=== PATIENT | male | born 1960 | race Caucasian/White ===

== ENCOUNTER 2017-10-18 10:44 | Emergency (ER) | payer OTHER ==
[2017-10-18] MEDS ORDERED: Lidocaine 1% 20 ML MDV ONE (10:52)
[2017-10-18] MEDS ORDERED: Lidocaine 1% w/Epinephrine 1:100K 30 ML VIAL ONE (10:55)
[2017-10-18] MEDS ORDERED: Bacitracin Zinc 1 Packet ONE (11:30)
== END 2017-10-18 11:44 | disposition home or self-care (01) ==
LOC: NAV ERS 10:44
DX: S51.812A Laceration without foreign body of left forearm, initial encounter (principal); K21.9 Gastro-esophageal reflux disease without esophagitis; I10 Essential (primary) hypertension; Z87.891 Personal history of nicotine dependence; W01.0XXA Fall on same level from slipping, tripping and stumbling without subsequent striking against object, initial encounter
CPT/HCPCS: 12002; 99001; J2001

== ENCOUNTER 2017-10-20 08:25 | Emergency (ER) | payer OTHER ==
[2017-10-20] MEDS ORDERED: Bacitracin Zinc 1 Packet ONE ×2 (08:57→10:13)
[2017-10-20 08:59] LABS: #Eosinphils 0.1 thou/uL (0.0-0.7); #Lymphocytes 1.3 thou/uL (1.20-3.40); #Monocytes 0.5 thou/uL (0.11-0.59); #Neutrophils 2.3 thou/uL (1.40-6.50); %Eosinophils 1.7 % (0.0-10.0); %Lymphocytes 31.2 % (21.0-51.0); %Monocytes 11.7 % (0.0-10.0); %Neutrophils 54.4 % (42.0-75.0); Hemoglobin 15.4 g/dL (14.0-18.0); Mean Corpuscular HGB CONC 30.2 g/dL (32.0-36.0); Mean Corpuscular Hemoglobin 24.2 pg (27.0-31.0); Mean Corpuscular Volume 79.9 fL (78.0-98.0); Mean Platelet Volume 13.5 fL (7.4-10.4); Platelet Count 93 thou/uL (130-400); RBC Distribution Width 15.7 % (11.5-14.5); Red Blood Cell (RBC) Count 6.36 mill/uL (4.70-6.10); White Blood Cell (WBC) Count 4.3 thou/uL (4.8-10.8)
--- NOTE | 2017-10-20 10:34 | RAD ---
FOUR VIEWS OF THE LEFT ELBOW: INDICATION: Joint pain and history of laceration. FINDINGS: There is radiopaque prominence seen overlying the lateral aspect of the elbow joint which may reflect debris. There is suggested hematoma within the posterolateral soft tissues of the distal left forea rm measuring approximately 8.1 cm. No acute fracture or subluxation is evident. IMPRESSION: No acute osseous abnormality. Suspected hematoma within the posterior soft tissues distal left arm. There is radiopaque density seen within the soft tissues lateral to the left elbow that may reflect radiopaque debris. POS: [facility]
--- NOTE | 2017-10-20 10:43 | RAD ---
TWO VIEWS OF THE LEFT ELBOW: INDICATION: Joint pain, rule out foreign body. FINDINGS: There are 2 radiopaque densities within the soft tissues lateral to the left elbow joint. One is see n measuring 6 mm and one is measuring 9 mm. This is adjacent to the inferior most surface marker mitchel michael on the lateral aspect of the left elbow. The superiormost surface marker projects over the regio n of suspected hematoma within the posterolateral distal left arm. IMPRESSION: 1. No acute osseous abnormality. 2. Radiopaque foreign body as above. 3. Suspected hematoma within the subcutaneous tissues of the left distal arm. POS: [facility]
== END 2017-10-20 10:22 | disposition home or self-care (01) ==
LOC: NAV ERS 08:25
DX: S40.022A Contusion of left upper arm, initial encounter (principal); K21.9 Gastro-esophageal reflux disease without esophagitis; I10 Essential (primary) hypertension; Z87.891 Personal history of nicotine dependence; Z79.899 Other long term (current) drug therapy; G80.9 Cerebral palsy, unspecified; W19.XXXA Unspecified fall, initial encounter
CPT/HCPCS: 85025